=== PATIENT | male | born 1955 | race Caucasian/White ===

== ENCOUNTER 2018-09-22 15:09 | Emergency (ER) | payer OTHER ==
[~2018-09-22] VITALS: Ht 180.3 cm; Wt 91.6 kg
[2018-09-22 15:16] VITALS: Ht 180.3 cm; Wt 91.6 kg
[2018-09-22 19:14] VITALS: BP 134/80
== END 2018-09-22 19:14 | disposition home or self-care (01) ==
LOC: ED 15:09
DX: M54.6 Pain in thoracic spine (principal); M79.604 Pain in right leg; F17.210 Nicotine dependence, cigarettes, uncomplicated